=== PATIENT | male | born 2000 ===

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

== ENCOUNTER 2018-07-04 17:02 | Inpatient (IN) | payer OTHER, MEDICAID ==
[2018-07-04] MEDS ORDERED: Morphine 4 MG/ML VIAL IVP STA (17:24)
[2018-07-04] MEDS ORDERED: Morphine 4 MG/ML VIAL ONE ×3 (17:29→23:04)
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
[2018-07-04] MEDS ORDERED: Lidocaine 1% Inj (20ml) IJ ONE (20:05)
[2018-07-04] MEDS ORDERED: Morphine 4 MG/ML VIAL IVP ONE (20:40)
[2018-07-04] MEDS ORDERED: Lidocaine 1% Inj (20ml) ONE (20:52)
[2018-07-04 21:08] LABS: BASO # 0.1 K/uL (0.0-0.2); BASO % 0.6 % (0.0-2.0); EOS # 0.2 K/uL (0.0-0.7); EOS % 2.2 % (0.0-4.0); HEMOGLOBIN 15.6 g/dL (12.0-18.0); LYMPH # 2.9 K/uL (1.0-4.3); LYMPH % 34.2 % (20.0-40.0); MEAN CORPUSCULAR HEMOGLOBIN 30.4 pg (27.0-31.0); MEAN CORPUSCULAR HGB CONC 32.7 g/dL (33.0-37.0); MEAN PLATELET VOLUME 11.1 fl (7.2-11.7); MONO # 0.5 K/uL (0.0-0.8); MONO % 6.3 % (0.0-10.0); NEUT # 4.8 K/uL (1.8-7.0); NEUT % 56.7 % (50.0-75.0); NRBC % 0.2 % (0.0-0.0); RBC 5.12 Mil/uL (4.40-5.90); RED CELL DISTRIBUTION WIDTH 13.3 % (11.5-14.5); WHITE BLOOD COUNT 8.5 K/uL (4.8-10.8)
[2018-07-04 21:36] LABS: PROTHROMBIN TIME 11.9 Seconds (9.8-13.1)
[2018-07-04 21:39] LABS: PARTIAL THROMBOPLASTIN TIME 28.8 Seconds (25.6-37.1)
[2018-07-04 22:07] LABS: BLOOD UREA NITROGEN 19 mg/dl (9-20); CALCIUM 9.6 mg/dL (8.4-10.2); GFR NON-AFRICAN AMERICAN > 60
[2018-07-04] MEDS ORDERED: Potassium Chloride 20 mEq ER Tab PO ONE ×2 (22:08→22:17)
[2018-07-04] MEDS ORDERED: Morphine 4 MG/ML VIAL IVP PRN ×2 (22:10→22:13)
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
[2018-07-04] MEDS ORDERED: Sodium Chloride 0.9% 1,000 ML IV SCH (22:15)
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
[2018-07-05] MEDS ORDERED: Sodium Chloride 0.45% 1,000 ML IV SCH (00:15)
[2018-07-05 06:20] LABS: HEMOGLOBIN 14.2 g/dL (12.0-18.0); MEAN CELL VOLUME 90.1 fl (80.0-94.0); MEAN CORPUSCULAR HEMOGLOBIN 29.8 pg (27.0-31.0); MEAN CORPUSCULAR HGB CONC 33.1 g/dL (33.0-37.0); RBC 4.75 Mil/uL (4.40-5.90); WHITE BLOOD COUNT 8.4 K/uL (4.8-10.8)
[2018-07-05 06:30] LABS: BLOOD UREA NITROGEN 16 mg/dl (9-20); GFR NON-AFRICAN AMERICAN > 60
--- NOTE | 2018-07-05 06:36 | CARD ---
APPROVED REPORT Date of service: 07/04/2018 EKG Measurement Heart [id number] <Conclusion> Normal sinus rhythm Normal ECG
--- NOTE | 2018-07-05 08:28 | RAD ---
Date of service: 07/04/2018 PROCEDURE: Right small finger radiographs. HISTORY: confirm reduction COMPARISON: None. TECHNIQUE: AP radiograph of the right hand, as well as spot oblique and lateral images of small finger were obtained. FINDINGS: RIGHT SMALL FINGER: The previously reported acute dorsal dislocation of the 5th distal interphalangeal joint is reduced to now normal anatomical alignment. The reference of a small ossific density anterior to the base of the middle phalanx same 5th digit is faintly seen HIDA-tiny ossific avulsed fracture fragment here versus tiny sesamoid bone-accessory ossifications center are differential considerations for it. Correlate clinically with point tenderness. The soft tissues do appear swollen here. JOINTS: Normal. SOFT TISSUES: Regional soft tissue swelling 5th digit OTHER FINDINGS: None. IMPRESSION: Successful reduction of a prior 5th distal interphalangeal dorsal dislocation.. Other findings as above.
--- NOTE | 2018-07-05 08:31 | RAD ---
Date of service: 07/04/2018 HISTORY: possible admission COMPARISON: No prior. FINDINGS: LUNGS: Study his apical lordotic; allowing for this no no active pulmonary disease. PLEURA: No significant pleural effusion identified, no pneumothorax apparent. CARDIOVASCULAR: No aortic atherosclerotic calcification present. Normal cardiac size-and likely accentuated due to technique. No significant appearing pulmonary venous congestion. Similarly pulmonary vasculature believes accentuated due to technique OSSEOUS STRUCTURES: No significant abnormalities. VISUALIZED UPPER ABDOMEN: Normal. OTHER FINDINGS: None. IMPRESSION: Limited exam due to technique. Nevertheless allowing for this, no suspect acute cardiopulmonary pathology believed present.
[2018-07-05 08:54] VITALS: BP 134/76; PULSE 64; RESP 17; TEMP 97.9
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
[2018-07-05 15:01] LABS: BARBITURATES, UR NEGATIVE (NEGATIVE); BENZODIAZEPINES, UR NEGATIVE (NEGATIVE); OPIATES, UR POSITIVE (NEGATIVE); PHENCYCLIDINE, UR NEGATIVE (NEGATIVE)
[2018-07-06 12:27] VITALS: O2SAT 98
== END 2018-07-05 15:00 | disposition home or self-care (01) | DRG 563 ==
LOC: H.ER 17:02 → H.ERHOLD 20:54 → H.PEDS 23:20
PROVIDERS: ADMIT Internal Medicine; ATTEND Internal Medicine
PROC: 2W3QX1Z Immobilization of Right Lower Leg using Splint (ICD-10-PCS; principal; 2018-07-04)
DX: S82.54XA Nondisplaced fracture of medial malleolus of right tibia, initial encounter for closed fracture (principal); S82.421A Displaced transverse fracture of shaft of right fibula, initial encounter for closed fracture; S62.636A Displaced fracture of distal phalanx of right little finger, initial encounter for closed fracture; S80.811A Abrasion, right lower leg, initial encounter; J45.909 Unspecified asthma, uncomplicated; V03.00XA Pedestrian on foot injured in collision with car, pick-up truck or van in nontraffic accident, initial encounter; Y93.02 Activity, running; Z91.013 Allergy to seafood; Y92.480 Sidewalk as the place of occurrence of the external cause

== ENCOUNTER 2018-07-10 22:22 | Emergency (ER) | payer MEDICAID, OTHER ==
[2018-07-10] MEDS ORDERED: Morphine 4 MG/ML VIAL ONE (23:08)
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
[2018-07-10] MEDS ORDERED: Morphine 4 MG/ML VIAL IV ONE (23:30)
[2018-07-11] MEDS ORDERED: Propofol 10 mg/ml Inj (20 ML) IV STA (00:13)
[2018-07-11] MEDS ORDERED: Propofol 10 mg/ml Inj (20 ML) ONE (00:16)
[2018-07-11 00:24] VITALS: RESP 18
[2018-07-11 00:29] VITALS: O2SAT 98
[2018-07-11 06:35] VITALS: BP 127/78; PULSE 81; TEMP 98.8
--- NOTE | 2018-07-11 08:06 | RAD ---
Date of service: 07/10/2018 PROCEDURE: Right Foot Radiographs. HISTORY: h/o fracture COMPARISON: None. FINDINGS: BONES: Distal medial malleolar and distal fibular shaft fractures noted JOINTS: Normal. SOFT TISSUES: Soft tissue swelling hindfoot lower leg OTHER FINDINGS: None. IMPRESSION: No foot fracture proper seen. Distal medial malleolar and distal fibular shaft fractures-both displaced-noted.
--- NOTE | 2018-07-11 08:09 | RAD ---
Date of service: 07/10/2018 PROCEDURE: Right Ankle Radiographs. HISTORY: h/o fracture COMPARISON: No comparable ankle same-day right foot study noted FINDINGS: BONES: Medial malleolar fracture inferiorly displaced 5 mm. Medial tibial plafond 5 mm medially displaced. Distal fibular shaft fracture with slight lateral displacement of the distal fracture fragment less than 50 percent apposition of the fractured surfaces here. Grossly posterior malleolus appears intact. JOINTS: . Ankle mortise widened Talar dome intact SOFT TISSUES: Diffuse anterior and posterior soft tissue swelling. OTHER FINDINGS: None. IMPRESSION: Displaced fractures as above with ankle mortise widening
--- NOTE | 2018-07-11 08:11 | RAD ---
Date of service: 07/11/2018 PROCEDURE: Right Ankle Radiographs. HISTORY: post reduction COMPARISON: Pre reduction 07/10/2018 ankle study at 2254 hr. FINDINGS: BONES: The distal fibular shaft fracture appears slightly less laterally displaced than before. The inferiorly displaced medial malleolar fracture appears similar and is also anteriorly displaced. JOINTS: No osteoarthrosis. There is less lateral ankle mortise widening-here ankle mortise appears anatomically reduced. The slight medial malleolar widened appearance is less than before. Talar dome intact SOFT TISSUES: Soft tissue swelling diffuse OTHER FINDINGS: None. IMPRESSION: Interval reduction prior ankle mortise widening. Fractures as above.
--- NOTE | 2018-07-12 09:13 | CP.PCM.CON ---
Past Patient History - Past Medical History & Family History Past Medical History?: Yes - Past Social History Smoking Status: Never Smoked - CARDIAC Hx Cardiac Disorders: No - PULMONARY Hx Asthma: Yes (childhood) - NEUROLOGICAL Hx Neurological Disorder: No - HEENT Hx HEENT Problems: No - RENAL Hx Chronic Kidney Disease: No - ENDOCRINE/METABOLIC Hx Endocrine Disorders: No - HEMATOLOGICAL/ONCOLOGICAL Hx Human Immunodeficiency Virus (HIV): No - INTEGUMENTARY Hx Dermatological Problems: No - MUSCULOSKELETAL/RHEUMATOLOGICAL Hx Musculoskeletal Disorders: No Hx Falls: No - GASTROINTESTINAL Hx Gastrointestinal Disorders: No - GENITOURINARY/GYNECOLOGICAL Hx Genitourinary Disorders: No - PSYCHIATRIC Hx Psychophysiologic Disorder: No Hx Substance Use: No - SURGICAL HISTORY Hx Appendectomy: Yes - ANESTHESIA Hx Anesthesia: Yes Hx Anesthesia Reactions: No Hx Malignant Hyperthermia: No Meds Allergies/Adverse Reactions: Allergies Allergy/AdvReac Type Severity Reaction Status Date / Time shrimp Allergy Intermediate SWELLING Verified 07/10/18 22:32 Results - Vital Signs Recent Vital Signs: Last Vital Signs Temp 98.8 F 07/11/18 01:55 Pulse 81 07/11/18 01:55 Resp 18 07/11/18 01:55 BP 127/78 07/11/18 01:55 Pulse Ox 98 07/11/18 03:11
== END 2018-07-11 01:55 | disposition home or self-care (01) ==
LOC: H.ER 22:22
DX: S82.91XA Unspecified fracture of right lower leg, initial encounter for closed fracture (principal); V03.10XA Pedestrian on foot injured in collision with car, pick-up truck or van in traffic accident, initial encounter; Y92.410 Unspecified street and highway as the place of occurrence of the external cause
CPT/HCPCS: 27840; 29515; 73610; 73630; 96374; 96375; 99284; J1885; J2270; J2704

== ENCOUNTER 2018-07-23 21:37 | Emergency (ER) | payer MEDICAID ==
[2018-07-23] MEDS ORDERED: Morphine 4 MG/ML VIAL IVP STA (22:59)
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
[2018-07-23] MEDS ORDERED: Morphine 4 MG/ML VIAL ONE (23:28)
[2018-07-24 00:39] VITALS: BP 125/54; PULSE 62; RESP 18; TEMP 99.7; O2SAT 98
--- NOTE | 2018-07-24 11:33 | RAD ---
Date of service: 07/23/2018 PROCEDURE: Right Ankle Radiographs. HISTORY: pain COMPARISON: 07/11/2018 FINDINGS: BONES: Stable alignment of major fracture fragments distal fibula. No appreciable impaction or distraction nor is there angulation. JOINTS: Normal. No osteoarthritis. Ankle mortise maintained. Talar dome intact SOFT TISSUES: Normal. OTHER FINDINGS: None. IMPRESSION: Stable findings related to distal right fibular fracture. Limitations of the current study: Detail obscured by overlying fiberglass cast.
--- NOTE | 2018-07-24 16:45 | CP.PCM.CON ---
History of Present Illness - History of Present Illness History of Present Illness: Podiatry Consult Note: Dr. Walden 18 year old male patient, with no PMHx, seen and evaluated in the ED for R ankle fracture. Patient is well known to Dr. Walden and has surgery on Monday for R ankle ORIF. He states that he was experiencing pain today and the splint was bothering him so he was advised by Dr. Walden to present to the ED for further evaluation. Patient states that he has been taking percocet which have helped ease the pain. He denies any new pedal complaints at this time. Patient states that he continues to use crutches and has kept his splint C/D/I. Denies N/V/F/SOB/CP. PMHx: denies PSHx: appendectomy All: shrimp Review of Systems - Review of Systems Review of Systems: As per HPI Past Patient History - Past Medical History & Family History Past Medical History?: Yes - Past Social History Smoking Status: Never Smoked - CARDIAC Hx Cardiac Disorders: No - PULMONARY Hx Asthma: Yes (childhood) - NEUROLOGICAL Hx Neurological Disorder: No - HEENT Hx HEENT Problems: No - RENAL Hx Chronic Kidney Disease: No - ENDOCRINE/METABOLIC Hx Endocrine Disorders: No - HEMATOLOGICAL/ONCOLOGICAL Hx Human Immunodeficiency Virus (HIV): No - INTEGUMENTARY Hx Dermatological Problems: No - MUSCULOSKELETAL/RHEUMATOLOGICAL Hx Musculoskeletal Disorders: No Hx Falls: No - GASTROINTESTINAL Hx Gastrointestinal Disorders: No - GENITOURINARY/GYNECOLOGICAL Hx Genitourinary Disorders: No - PSYCHIATRIC Hx Psychophysiologic Disorder: No Hx Substance Use: No - SURGICAL HISTORY Hx Appendectomy: Yes - ANESTHESIA Hx Anesthesia: Yes Hx Anesthesia Reactions: No Hx Malignant Hyperthermia: No Meds Allergies/Adverse Reactions: Allergies Allergy/AdvReac Type Severity Reaction Status Date / Time shrimp Allergy Intermediate SWELLING Verified 07/23/18 21:49 Physical Exam - Constitutional Appears: Non-toxic, No Acute Distress - Head Exam Head Exam: ATRAUMATIC, NORMOCEPHALIC - Extremities Exam Additional comments: RLE focused VASC: DP and PT pulses palpable; temp gradient warm to warm; cap refill <3 seconds to all digits; +1 edema globally to the ankle and hindfoot DERM: abrasions noted to the medial ankle anteriorly; mild ecchymosis present about the ankle, no open lesions at this time ORTHO: pain upon palpation at the level of the ankle, the lateral foot at the fifth metatarsal base as well as proximal to the ankle; muscle testing could not be performed due to pain and guarding, no pain with calf compression NEURO: gross and protective sensation intact - Neurological Exam Neurological exam: Alert, Oriented x3 - Psychiatric Exam Psychiatric exam: Normal Affect, Normal Mood Results - Vital Signs Recent Vital Signs: Last Vital Signs Temp 99.7 F H 07/24/18 00:39 Pulse 62 07/24/18 00:39 Resp 18 07/24/18 00:39 BP 125/54 L 07/24/18 00:39 Pulse Ox 98 07/24/18 00:39 Assessment & Plan - Assessment and Plan (Free Text) Assessment: 18 year old male patient, with no PMHx, seen and evaluated in the ED for R ankle fracture Plan: Patient seen and evaluated Discussed patient in detail with Dr. Win Ivy ankle x-rays taken and reviewed; Medial and lateral malleolar fracture appreciated (read by me) Posterior splint taken down and reapplied to R lower extremity with Ortiz compression Educated patient on importance of elevating lower extremity and icing behind knee Patient to follow up with Dr. Walden this week, plan for surgery Monday for R a nkle ORIF Advised to continue NWB to the right lower extremity with the use of crutches C/w pain medication as needed Thank you for the consult - Date & Time Date: 07/23/18 Time: 23:00
== END 2018-07-24 00:45 | disposition home or self-care (01) ==
LOC: H.ER 21:37
DX: S82.891G Other fracture of right lower leg, subsequent encounter for closed fracture with delayed healing (principal); J45.909 Unspecified asthma, uncomplicated
CPT/HCPCS: 73610; 96374; 96375; 99284; J2270; J2405